=== PATIENT | female | born 1955 | race Caucasian/White ===

== ENCOUNTER → 2019-06-28 06:59 | Outpatient (CLI) | payer MEDICARE, OTHER, SELFPAY ==
[2019-06-28 07:41] LABS: Hematocrit 43.4 % (36-46); Hemoglobin 14.8 g/dL (12.0-16.0); Mean Corpuscular HGB Conc 34.1 % (30-36); Mean Corpuscular Hemoglobin 32.6 PG (26-34); Mean Corpuscular Volume 95.8 fL (80-100); Platelet Count 255 X10^3/uL (150-400); Red Blood Cell Count 4.53 X10^6/uL (4.0-5.2); Red Cell Distribution Width 13.1 % (11.6-14.8); White Blood Cell Count 5.3 X10^3/uL (4.5-11.0)
[2019-06-28 07:54] LABS: Alanine Aminotransferase 13 IU/L (<35); Albumin 4.1 g/dL (3.5-5.0); Albumin Globulin Ratio 1.4 (1.0-2.8); Alkaline Phosphatase 80 U/L (38-126); Aspartate Aminotransferase 19 IU/L (14-36); BUN Creatinine Ratio 18.6 (6-22); Blood Urea Nitrogen 13 mg/dL (7-17); Calcium 9.4 mg/dL (8.4-10.2); Carbon Dioxide 28 mmol/L (22-32); Chloride 103 mmol/L (98-107); Cholesterol 193 mg/dL (140-199); Estimated Glomerular Filt Rate > 60.0 mL/min (>60); Globulin 2.9 g/dL (1.7-4.1); Glucose 105 mg/dL (80-110); HDL Cholesterol 76 mg/dL (40-60); HEMOLYSIS < 15 (0-50); LDL Cholesterol Calculated 101 mg/dL (<100); Potassium 3.8 mmol/L (3.4-5.1); Sodium 138 mmol/L (137-145); Triglycerides 80 mg/dL (35-150)
[2019-06-28 08:19] LABS: Neutrophils Absolute Manual 3127 /uL (3000-5900); Total Cells Counted 100
[2019-06-28 08:22] LABS: Platelet Estimate Adequate on smear; RBC Morphology Normal Morphology
[2019-06-28 08:23] LABS: Thyroid Stimulating Hormone 1.61 uIU/mL (0.47-4.68)
[2019-06-28 08:56] LABS: Appearance Urine UA CLEAR; Bilirubin Urine UA NEGATIVE (NEGATIVE); Color Urine UA YELLOW; Glucose Urine UA NEGATIVE (Negative); Ketones Urine UA NEGATIVE (NEGATIVE); Leukocyte Esterase Urine UA 1+ (NEGATIVE); Nitrite Urine UA NEGATIVE (Negative); Occult Blood Urine UA NEGATIVE (Negative); Protein Urine UA NEGATIVE (Negative); Specific Gravity Urine UA 1.015 (1.000-1.035); Urobilinogen Urine UA 0.2 E.U./dL (0.2)
[2019-06-28 09:00] LABS: RBC Urine None Seen (0-5/HPF)
[2019-06-28 09:14] LABS: Bacteria Urine Occasional (0-1); Culture Indicated Urine Specimen Cultured; Squamous Epithelial Cell Urine 1-5 /HPF (0-5/HPF); WBC Urine 0-1/HPF (0-5/HPF)
== END ==
PROVIDERS: PCP Family Medicine; Visit Provider Family Medicine
DX: Z13.220 Encounter for screening for lipoid disorders (principal); Z13.29 Encounter for screening for other suspected endocrine disorder; Z51.81 Encounter for therapeutic drug level monitoring; J44.9 Chronic obstructive pulmonary disease, unspecified
CPT/HCPCS: 36415; 80053; 80061; 81003; 81015; 84443; 85025; 87086

== ENCOUNTER → 2019-07-23 09:49 | Outpatient (CLI) | payer MEDICARE, OTHER, SELFPAY ==
--- NOTE | 2019-07-23 09:51 | DI.MG.S_ITS ---
BILATERAL DIGITAL SCREENING MAMMOGRAM 3D/2D WITH CAD: 07/23/2019 CLINICAL: Routine screening. Comparison is made to exams dated: 12/17/2016 mammogram, 07/31/2010 mammogram, and 07/26/2005 mammogram - [facility]. The tissue of both breasts is heterogeneously dense. This may lower the sensitivity of mammography. Current study was also evaluated with a Computer Aided Detection (CAD) system. No significant masses, calcifications, or other findings are seen in either breast. There has been no significant interval change. IMPRESSION: NEGATIVE There is no mammographic evidence of malignancy. A 1 year screening mammogram is recommended. This exam was interpreted at Station ID: [id number]. NOTE: For mammograms, a report in lay terms will be sent to the patient. Approximately 15% of breast malignancies will not be visualized mammographically. In the management of a palpable breast mass, a negative mammogram must not discourage biopsy of a clinically suspicious lesion. Electronically Signed By: Murphy leal/smith:07/23/2019 12:45:38 letter sent: Normal Exam ACR BI-RADS Category 1: Negative [id number]
== END ==
PROVIDERS: PCP Family Medicine; Visit Provider Family Medicine
DX: Z12.31 Encounter for screening mammogram for malignant neoplasm of breast (principal)
CPT/HCPCS: 77063; 77067

== ENCOUNTER → 2020-01-07 15:40 | Outpatient (CLI) | payer MEDICARE, OTHER, SELFPAY ==
--- NOTE | 2020-01-07 15:46 | DI.RAD.S_ITS ---
PROCEDURE: XR THORACIC SPINE 3V INDICATIONS: RULE OUT COMP FX TECHNIQUE: 3 views of the thoracic spine were acquired. COMPARISON: None. FINDINGS: Bones: No dislocations. No suspicious bony lesions. 12 there is a vertebral plana compression fracture T7, chronicity uncertain. Elsewhere no fracture is found and there is only mild degenerative disc disease along the thoracic spine. pairs of ribs are noted, and appear intact where visualized. Soft tissues: No paravertebral stripe thickening. IMPRESSION: T7 vertebral plana compression fracture, with 64% height reduction when compared to the normal level immediately above. Dictated by: Kiel Cummings M.D. on 01/07/2020 at 16:28 Approved by: Kiel Cummings M.D. on 01/07/2020 at 16:30
== END ==
PROVIDERS: PCP Family Medicine; Referring Provider Chiropractor; Visit Provider Chiropractor
DX: M48.54XA Collapsed vertebra, not elsewhere classified, thoracic region, initial encounter for fracture (principal); M47.814 Spondylosis without myelopathy or radiculopathy, thoracic region
CPT/HCPCS: 72072

== ENCOUNTER → 2020-01-12 14:35 | Outpatient (CLI) | payer MEDICARE, OTHER, SELFPAY ==
[2020-01-12 15:53] LABS: Add Manual Diff / Slide Review NO; Basophils Absolute Auto 100 /uL (0-100); Basophils Percent Auto 0.6 % (0-2); Eosinophils Absolute Auto 300 /uL (0-450); Eosinophils Percent Auto 3.4 % (2-4); Hematocrit 41.5 % (36-46); Hemoglobin 14.4 g/dL (12.0-16.0); Lymphocytes Absolute Auto 2200 /uL (1100-4500); Lymphocytes Percent Auto 23.2 % (25-40); Mean Corpuscular HGB Conc 34.6 % (30-36); Mean Corpuscular Hemoglobin 33.2 PG (26-34); Mean Corpuscular Volume 95.8 fL (80-100); Monocytes Absolute Auto 700 /uL (0-900); Monocytes Percent Auto 7.5 % (3-14); Neutrophils Absolute Auto 6300 /uL (1500-7000); Neutrophils Percent Auto 65.3 % (50-75); Platelet Count 301 X10^3/uL (150-400); Red Blood Cell Count 4.33 X10^6/uL (4.0-5.2); White Blood Cell Count 9.7 X10^3/uL (4.5-11.0)
== END ==
PROVIDERS: PCP Family Medicine; Referring Provider Orthopaedic Surgery; Visit Provider Orthopaedic Surgery
DX: Z01.812 Encounter for preprocedural laboratory examination (principal)
CPT/HCPCS: 36415; 85025

== ENCOUNTER → 2020-01-15 14:18 | Outpatient (CLI) | payer MEDICARE, OTHER, SELFPAY ==
[2020-01-16 08:23] LABS: COVID19 Sendout Not Detected (Not Detect)
== END ==
PROVIDERS: PCP Family Medicine; Visit Provider Physician Assistant
DX: Z01.818 Encounter for other preprocedural examination (principal)
CPT/HCPCS: 87635

== ENCOUNTER 2020-01-18 11:29 | Day surgery (SDC) | payer MEDICARE, OTHER, SELFPAY ==
--- NOTE | 2020-01-14 14:26 | SUR.PREOP ---
per pt covid testing schd for Sat 01/17 @1445 with Resp clinic
--- NOTE | 2020-01-18 | PATH_ITS ---
[facility] Accession Number: [id number] . 01 Material submitted: . bone - T7 BONE . 01 Diagnosis: Bone, T7, Biopsy: Fragments of trabecular bone/marrow with focal osteonecrosis and extensive marrow necrosis. Negative for metastatic carcinoma or viable malignancy. V 01/20/2020 1248 Local . 01 Comment: A broad spectrum cytokeratin SURYA *immunostain is performed, with the control stained appropriately. The SURYA is negative, strongly ruling against a metastatic carcinoma. . * This test was developed and its performance characteristics determined by [facility]. It has not been cleared or approved by the U.S. Food and Drug Administration. The FDA has determined that such clearance or approval is not necessary. This test is used for clinical purposes. It should not be regarded as investigational or for research. . 01 Electronically signed: . Dunia Carlos MD, Pathologist NPI- [id number] . 01 Gross description: . T7 BONE: Received in formalin is 1 bone fragment measuring 0.3 x 0.3 x 0.2 cm. Specimen is submitted in toto after decalcification in 1 cassette. /ABDULLAHI 01/18/2020 2233 Local . 01 Pathologist provided ICD-10: S22.060A . 01 CPT . 620818, [id number] Performed at: 01 [facility] [address] [address] [place] [address] [address], [place], [place] [id number] MD Ketan Bradshaw MD Phone: [phone]
--- NOTE | 2020-01-18 | DI.RAD.S_ITS ---
PROCEDURE: XR THORACIC SPINE 2V INDICATIONS: T7 KYPHOPLASTY TECHNIQUE: 4 views of the thoracic spine were acquired. COMPARISON: [facility], , XR THORACIC SPINE 3V, 01/07/2020, 15:39. FINDINGS: Spot fluoroscopic intraoperative images demonstrating T7 kyphoplasty Dictated by: Casa Curtis M.D. on 01/18/2020 at 16:51 Approved by: Casa Curtis M.D. on 01/18/2020 at 16:52
[2020-01-18 07:11] VITALS: BMI 23.8
[2020-01-18 11:58] VITALS: BP 137/100; PULSE 89; RESP 14; TEMP 36.9; O2SAT 98; BMI 22.3
[2020-01-18] MEDS: LACTATED RINGERS 1,000 ML 42 ML IV (12:18)
--- NOTE | 2020-01-18 13:06 | PM.PREOP ---
Pre-operative Note COVID-19 COVID-19 status: Negative Result date/Date tested (Pos, Neg/Pending): 01/15/20 Interval Note History & Physical reviewed/Exam performed by Physician: Yes Changes to H&P: No
[2020-01-18] MEDS: CEFAZOLIN 2 GM/100 ML FROZ.PIGGY IV (13:40)
--- NOTE | 2020-01-18 13:55 | SUR.OPER ---
Prone on padded OR bed, head in foam head support, gel chest rolls, gel pad under knees, pillow under lower legs, toes free of pressure, arms secured on padded arm boards at <90 degrees abduction. Safety belt at thigh.
[2020-01-18] MEDS: BUPIVACAINE 0.25% W/ EPI (PF) 10 ML VIAL 60 ML INJ (13:58)
[2020-01-18 14:10] VITALS: BP 109/81; PULSE 80; RESP 16; TEMP 36.4; O2SAT 94
--- NOTE | 2020-01-18 14:12 | PM.OP.1 ---
Operative Date/Time/Diagnoses Date of procedure: 01/18/20 Time of procedure: 14:12 Pre-op diagnosis: T7 compression fracture Osteoporosis age-related with pathologic fracture Back pain midline Post-op diagnosis: same Procedure & Clinicians Procedure: T7 kyphoplasty Same procedure as scheduled: Yes Indications: [age] year old female with intractable pain from an acute compression fracture. They had failed conservative management and requested operative intervention. Risks and benefits of surgery were discussed and appropriate consents were obtained. Surgeon: Virgilio Casas Click Yes if Unassisted: Yes Anesthesia Type: General Operative Notes Findings: None Closure Type: primary Specimen(s): other (T7 vertebral biopsy) Estimated Blood Loss (mL): 1 Procedure in detail: The patient was brought to the operating room and intubated on the table. They were then rolled over to the well-padded prone position. Time-out was performed. We confirmed positioning with two fluoroscopy views. The back was prepped and draped in the standard sterile fashion. Preoperative antibiotics were given. Using fluoroscopic guidance, the planned incision site was infiltrated with Marcaine with epinephrine and injected down to the entry site of the left pedicle of T7. A small stab incision was made and we advanced a Jamshiedi needle down the left pedicle into the completely collapsed vertebral body. A bone biopsy was harvested from this and sent to pathology. We then passed the DFine osteotome and opened it up to create a void inside the vertebral body. We then began injecting the cement. This was done with frequent fluoroscopy imaging. There was minimal lateral extravasation. Once we had good fill of the T7 vertebral body the injection was stopped and the trocars were removed. Final x-rays were taken. The wound was cleaned. Steri-Strips and sterile dressing were placed. Patient was rolled over, extubated, and brought to recovery without complications. Complications: none Post-operative Condition: stable Disposition: PACU Plan for aftercare: Outpatient. Activity as tolerated.
[2020-01-18 14:15] VITALS: BP 120/80; PULSE 70; RESP 14; O2SAT 99
[2020-01-18 14:20] VITALS: BP 129/81; PULSE 90; RESP 14; O2SAT 98
[2020-01-18 14:30] VITALS: BP 125/92; PULSE 79; RESP 15; O2SAT 95
[2020-01-18] MEDS: OXYCODONE/ACETAMINOPHEN 5/325 TABLET 1 TAB PO (14:45)
[2020-01-18 14:55] VITALS: BP 172/82; PULSE 69; RESP 14; TEMP 37.5; O2SAT 97
--- NOTE | 2020-01-18 15:22 | SUR.PHASEII ---
1507 Multiple attempts to obtain BP, difficulty with automatic machines. Tolerating PO intake well. Ambulated to the bathroom, stable on feet. No questions/concerns. Stable.
== END 2020-01-18 15:07 | disposition home or self-care (01) ==
PROVIDERS: PCP Family Medicine; Referring Provider Orthopaedic Surgery; Visit Provider Orthopaedic Surgery
PROC: (CPT 22513; principal; 2020-01-18 14:15)
DX: M80.08XA Age-related osteoporosis with current pathological fracture, vertebra(e), initial encounter for fracture (principal); S22.060A Wedge compression fracture of T7-T8 vertebra, initial encounter for closed fracture; M54.6 Pain in thoracic spine; F17.210 Nicotine dependence, cigarettes, uncomplicated; J44.9 Chronic obstructive pulmonary disease, unspecified
CPT/HCPCS: 22513; 72070; 76000; C1776; J0690; J2250; J2704; J3010

== ENCOUNTER → 2020-02-12 13:59 | Outpatient (CLI) | payer MEDICARE, OTHER, SELFPAY ==
[2020-02-13 01:03] LABS: COVID19 Sendout Not Detected (Not Detect)
== END ==
PROVIDERS: PCP Family Medicine; Visit Provider Physician Assistant
DX: Z01.812 Encounter for preprocedural laboratory examination (principal)
CPT/HCPCS: 87635

== ENCOUNTER 2020-02-15 13:12 | Day surgery (SDC) | payer MEDICARE, OTHER, SELFPAY ==
[2020-02-11 08:37] VITALS: BMI 23.8
[2020-02-15] VITALS (8 sets, daily range): BP systolic 128–171; BP diastolic 86–100; PULSE 72–89; RESP 12–25; TEMP 36.8–37.3; O2SAT 92–97; BMI 23.8
--- NOTE | 2020-02-15 | PATH_ITS ---
[facility] Accession Number: [id number] . 01 Material submitted: . vertebral column - VERTEBRA T8 BIOPSY . 01 Clinical history: . THORACIC KYPHOPLASTY . 02 Diagnosis: Vertebra T8, Biopsy: Small fragment of trabecular bone and inflamed tissue with features of repair. Small focus of hematopoietic tissue with crush artifact. Active inflammation/acute osteomyelitis is present. Marked increase in eosinophils is present. Negative for epithelial neoplasm by immunohistochemistry studies. MRV 02/18/2020 1430 Local . 02 Electronically signed: . Lorraine Payan MD, Pathologist NPI- [id number] . 01 Gross description: . VERTEBRA T8 BIOPSY: Received in formalin is 1 fragment(s) of vera, hard bone measuring 0.3 x 0.2 x 0.2 cm submitted entirely in 1 cassette(s) /QBJ 02/16/2020 0415 Local . 02 Microscopic: . An immunostain for SURYA is performed. The control stain showed appropriate reactivity. . RESULTS: SURYA: Negative. . These findings mitigate against the presence of an epithelial neoplasm. . * This test was developed and its performance characteristics determined by [facility]. It has not been cleared or approved by the U.S. Food and Drug Administration. The FDA has determined that such clearance or approval is not necessary. This test is used for clinical purposes. It should not be regarded as investigational or for research. . 02 Pathologist provided ICD-10: S22.060A, M80.00XD, M54.6 . 02 CPT . 815870, [id number] Performed at: 01 [facility] [address] [place] [address] [address], [place], [place] [id number] MD Ketan Bradshaw MD Phone: [phone] Performed at: 02 [facility] [address] [place] [id number] MD Alissa Miguel MD Phone: [phone]
--- NOTE | 2020-02-15 | DI.RAD.S_ITS ---
PROCEDURE: XR LUMBAR SPINE 2-3V INDICATIONS: T8 KYPHOPLASTY TECHNIQUE: 2 views of the lumbar spine were acquired. COMPARISON: [facility], CR, XR THORACIC SPINE 3V, 01/07/2020, 15:39. [facility] [place], CR, XR THORACIC SPINE 2 VIEWS, 02/09/2020, 11:12. FINDINGS: 2 spot fluoroscopic interpreted views demonstrating T8 kyphoplasty. Dictated by: Casa Curtis M.D. on 02/15/2020 at 17:11 Approved by: Casa Curtis M.D. on 02/15/2020 at 17:13
[2020-02-15] MEDS: LACTATED RINGERS 1,000 ML 42 ML IV (14:51)
--- NOTE | 2020-02-15 14:58 | PM.PREOP ---
Pre-operative Note COVID-19 COVID-19 status: Negative Result date/Date tested (Pos, Neg/Pending): 02/12/20 Interval Note History & Physical reviewed/Exam performed by Physician: Yes Changes to H&P: No
[2020-02-15] MEDS: ALBUTEROL 2.5 MG/3 ML NEB (ADULT) INH (15:20)
--- NOTE | 2020-02-15 16:00 | SUR.OPER ---
Prone on flat spine table bed, head in foam head support, gel chest rolls, gel pad under knees, pillow under lower legs, toes free of pressure, arms secured on padded arm boards at <90 degrees abduction. Safety belt at thigh.
[2020-02-15] MEDS: BUPIVACAINE 0.25% W/ EPI 30 ML VIAL INJ (16:06)
[2020-02-15] MEDS: CEFAZOLIN 1 GM VIAL IV (16:07)
--- NOTE | 2020-02-15 16:10 | PM.OP.1 ---
Operative Date/Time/Diagnoses Date of procedure: 02/15/20 Time of procedure: 16:10 Pre-op diagnosis: T8 compression fracture Osteoporosis with current pathologic fracture Back pain Post-op diagnosis: same Procedure & Clinicians Procedure: T8 kyphoplasty Same procedure as scheduled: Yes Indications: [age] year old female with intractable pain from an acute T8 compression fracture. They had failed conservative management and requested operative intervention. Risks and benefits of surgery were discussed and appropriate consents were obtained. Surgeon: Virgilio Casas Click Yes if Unassisted: Yes Anesthesia Type: General Operative Notes Findings: None Closure Type: primary Specimen(s): other (T8 vertebral biopsy) Estimated Blood Loss (mL): 1 Procedure in detail: The patient was brought to the operating room and intubated on the table. They were then rolled over to the well-padded prone position. Time-out was performed. We confirmed positioning with two fluoroscopy views. The back was prepped and draped in the standard sterile fashion. Preoperative antibiotics were given. Using fluoroscopic guidance, the planned incision site was infiltrated with Marcaine with epinephrine and injected down to the entry site of the left pedicle of T8. A small stab incision was made and we advanced a Jamshiedi needle down the left pedicle into the vertebral body. A bone biopsy was harvested from this and sent to pathology. We then passed the DFine osteotome and opened it up to create a void inside the vertebral body. We then began injecting the cement. This was done with frequent fluoroscopy imaging. There was no extravasation. Once we had good fill of the T8 vertebral body the injection was stopped and the trocars were removed. Final x-rays were taken. The wound was cleaned. Steri-Strips and sterile dressing were placed. Patient was rolled over, extubated, and brought to recovery without complications. Complications: none Post-operative Condition: stable Disposition: same day surgery Plan for aftercare: Outpatient. Activity as tolerated
[2020-02-15] MEDS: fentaNYL 100 MCG/2 ML INJ IV (16:31)
--- NOTE | 2020-02-15 16:51 | SUR.PHASEI ---
transferred care to BLANCHE Harper. Pt in stable condition
--- NOTE | 2020-02-15 17:18 | SUR.PHASEII ---
Pt received from BLANCHE Herrera in stable condition both stating pt ready to go. All Dc instructions given to pt and she verbalizes understanding along with prescription. Pt up and ambulating well, pain tolerable at 3, getting dressed now at 1700.
== END 2020-02-15 17:15 | disposition home or self-care (01) ==
PROVIDERS: PCP Family Medicine; Referring Provider Orthopaedic Surgery; Visit Provider Orthopaedic Surgery
PROC: (CPT 22513; principal; 2020-02-15 14:45)
DX: M80.08XA Age-related osteoporosis with current pathological fracture, vertebra(e), initial encounter for fracture (principal); S22.060A Wedge compression fracture of T7-T8 vertebra, initial encounter for closed fracture; M54.9 Dorsalgia, unspecified; J44.9 Chronic obstructive pulmonary disease, unspecified; F41.9 Anxiety disorder, unspecified
CPT/HCPCS: 22513; 72100; 76000; C1776; J0690; J3010; J7613

== ENCOUNTER → 2020-03-09 14:49 | Outpatient (CLI) | payer MEDICARE, OTHER, SELFPAY | PROVIDERS: PCP Family Medicine; Referring Provider Family Medicine; Visit Provider Family Medicine | DX: M80.88XA Other osteoporosis with current pathological fracture, vertebra(e), initial encounter for fracture (principal); R53.83 Other fatigue; J44.9 Chronic obstructive pulmonary disease, unspecified; Z82.62 Family history of osteoporosis; Z78.0 Asymptomatic menopausal state; Z13.29 Encounter for screening for other suspected endocrine disorder; Z87.891 Personal history of nicotine dependence | CPT/HCPCS: 77080 ==

== ENCOUNTER → 2020-04-25 14:17 | Outpatient (CLI) | payer MEDICARE, OTHER, SELFPAY ==
[2020-04-25 14:59] LABS: Blood Urea Nitrogen 13 mg/dL (7-17); Estimated Glomerular Filt Rate > 60.0 mL/min (>60)
[2020-04-25] MEDS: ZOLEDRONIC ACID 5 MG in SODIUM CHLORIDE 0.9% 100 ML 425 ML IV (15:14)
[2020-04-25 15:23] VITALS: BP 140/75; PULSE 88; RESP 16; TEMP 37.2
== END ==
PROVIDERS: PCP Family Medicine; Referring Provider Family Medicine; Visit Provider Family Medicine
DX: M81.0 Age-related osteoporosis without current pathological fracture (principal)
CPT/HCPCS: 36415; 82565; 84520; 96365; J3489

== ENCOUNTER → 2020-12-25 09:35 | Outpatient (CLI) | payer MEDICARE, OTHER, SELFPAY ==
[2020-12-25 11:31] LABS: COVID19 -Nasal RAPID Negative (Negative)
== END ==
PROVIDERS: PCP Family Medicine; Visit Provider Student in an Organized Health Care Education/Training Program
DX: Z01.812 Encounter for preprocedural laboratory examination (principal); Z20.822 Contact with and (suspected) exposure to COVID-19
CPT/HCPCS: 87635; C9803

== ENCOUNTER 2020-12-26 08:19 | Day surgery (SDC) | payer MEDICARE, OTHER, SELFPAY ==
[2020-12-26] MEDS: PROPARACAINE 0.5% OPHTH SOL 2 DROPS EYE-OP (09:05)
[2020-12-26] MEDS: CATARACT EYE COMPOUND (10 DROPS/SYRINGE) 3 DROPS EYE-OP (09:10)
[2020-12-26 09:13] VITALS: BP 125/84; PULSE 84; RESP 18; TEMP 36.7; O2SAT 98; BMI 19.8
--- NOTE | 2020-12-26 10:02 | PM.PREOP ---
Pre-operative Note Interval Note History & Physical reviewed/Exam performed by Physician: Yes Changes to H&P: No
--- NOTE | 2020-12-26 10:02 | PM.OP.1 ---
Operative Date/Time/Diagnoses Pre-op diagnosis: Nuclear cataract right eye Procedure & Clinicians Procedure: Cataract Surgery Same procedure as scheduled: Yes Surgeon: Florin Yang Anesthesia Type: MAC +/- and Sedation Operative Notes Procedure in detail: Patient brought to the operating suite. Tetracaine drops placed in the right eye. Patient was prepped and draped in sterile manner. Wire lid speculum was placed in the eye. Betadine drops were placed on the eye. This was irrigated. Lidocaine jelly was placed on the eye. A paracentesis port was created with a side-port blade. 0.1 mL 1% preservative free lidocaine was injected into the anterior chamber. The anterior chamber was deepened with viscoelastic. 2.6 mm keratome was used to create a temporal clear corneal incision. Cystotome and Utrata forceps were used to create continuous tear capsulorrhexis. Balanced salt solution was used to hydro dissect the nucleus. The phacoemulsification handpiece was inserted and the nucleus was removed using the stop and chop technique. The irrigation aspiration handpiece was inserted and the remaining cortex was removed. Anterior chamber was deepened with viscoelastic. An Rosenthal ZCB00 intraocular lens with a power of 19.5 was injected into the capsular bag. Irrigation aspiration handpiece was inserted and the remaining viscoelastic was removed. Incision was hydrated with balanced salt solution and found to be leak free with pressure with Weck-Angeline sponges. 0.1 mL Vigamox injected anterior chamber. 0.3 mL Kenalog 10 mg was injected subconjunctivally. Lid speculum was removed. The patient left the operating room in excellent condition. Complications: none Post-operative Condition: stable Disposition: same day surgery
[2020-12-26] MEDS: LIDOCAINE 2% (GLYDO) 6 ML GEL TOP (10:18)
[2020-12-26] MEDS: TRIAMCINOLONE 50 MG/5 ML VIAL INJ (10:19)
[2020-12-26] MEDS: MOXIFLOXACIN INJ 4 MG/0.8 ML VIAL 0.5 MG EYE-OP (10:19)
[2020-12-26] MEDS: PHENYLEPHRINE/LIDOCAINE VIAL (OR) 0.2 ML EYE-OP (10:19)
[2020-12-26] MEDS: BALANCED SALT IRRIG SOLN NO.2 500 ML, EPINEPHrine 1 MG IRR (10:19)
[2020-12-26] MEDS: TETRACAINE 0.5% OPHTH DROPS 4 ML 2 DROPS EYE-OP (10:20)
[2020-12-26] MEDS: CHONDROIDTIN/SOD HYALURONATE 1.05 ML SYRINGE INTRAOCULA (10:20)
[2020-12-26 10:45] VITALS: BP 125/80; PULSE 88; RESP 18; O2SAT 97
--- NOTE | 2020-12-26 10:50 | SUR.PHASEII ---
pt awaiting ride and drinking coffee. Denies any complaints. Have called ride 3 times and no answer.
== END 2020-12-26 11:04 | disposition home or self-care (01) ==
PROVIDERS: PCP Family Medicine; Referring Provider Ophthalmology; Visit Provider Ophthalmology
PROC: (CPT 66984; principal; 2020-12-26 10:15)
DX: H25.11 Age-related nuclear cataract, right eye (principal); I25.2 Old myocardial infarction
CPT/HCPCS: 66984; J0171; J2250; J3301

== ENCOUNTER → 2021-01-08 08:58 | Outpatient (CLI) | payer MEDICARE, OTHER, SELFPAY ==
[2021-01-08 11:40] LABS: COVID19 -Nasal RAPID Negative (Negative)
== END ==
PROVIDERS: PCP Family Medicine; Visit Provider Student in an Organized Health Care Education/Training Program
DX: Z01.812 Encounter for preprocedural laboratory examination (principal); Z20.822 Contact with and (suspected) exposure to COVID-19
CPT/HCPCS: 87635; C9803

== ENCOUNTER 2021-01-09 06:39 | Day surgery (SDC) | payer MEDICARE, OTHER, SELFPAY ==
[2021-01-09] MEDS: CATARACT EYE COMPOUND (10 DROPS/SYRINGE) 3 DROPS EYE-OP (07:11)
[2021-01-09] MEDS: PROPARACAINE 0.5% OPHTH SOL 2 DROPS EYE-OP (07:11)
[2021-01-09 07:16] VITALS: BP 132/85; PULSE 95; RESP 16; TEMP 36.9; O2SAT 94
--- NOTE | 2021-01-09 08:01 | P.OP_ITS ---
Operative Date/Time/Diagnoses Pre-op diagnosis: Nuclear Cataract Left eye Post-op diagnosis: same Procedure & Clinicians Same procedure as scheduled: Yes Surgeon: Florin Yang Anesthesia Type: MAC +/- and Sedation Operative Notes Procedure in detail: Patient brought to the operating suite. Tetracaine drops placed in the left eye. Patient was prepped and draped in sterile manner. Wire lid speculum was placed in the eye. Betadine drops were placed on the eye. This was irrigated. Lidocaine jelly was placed on the eye. A paracentesis port was created with a side-port blade. 0.1 mL 1% preservative free lidocaine was injected into the anterior chamber. The anterior chamber was deepened with viscoelastic. 2.6 mm keratome was used to create a temporal clear corneal incision. Cystotome and Utrata forceps were used to create continuous tear capsulorrhexis. Balanced salt solution was used to hydro dissect the nucleus. The phacoemulsification handpiece was inserted and the nucleus was removed using the stop and chop technique. The irrigation aspiration handpiece was inserted and the remaining cortex was removed. Anterior chamber was deepened with viscoe lastic. An Rosenthal DIB00 intraocular lens with a power of 19.5 was injected into the capsular bag. Irrigation aspiration handpiece was inserted and the remaining viscoelastic was removed. Incision was hydrated with balanced salt solution and found to be leak free with pressure with Weck-Angeline sponges. 0.1 mL Vigamox injected anterior chamber. 0.3 mL Kenalog 10 mg was injected subconjunctivally. Lid speculum was removed. The patient left the operating room in excellent condition. Complications: none Post-operative Condition: stable Disposition: same day surgery
--- NOTE | 2021-01-09 08:01 | PM.PREOP ---
Pre-operative Note Interval Note History & Physical reviewed/Exam performed by Physician: Yes Changes to H&P: No
[2021-01-09] MEDS: CHONDROIDTIN/SOD HYALURONATE 1.05 ML SYRINGE INTRAOCULA (08:16)
[2021-01-09] MEDS: MOXIFLOXACIN INJ 4 MG/0.8 ML VIAL 0.5 MG EYE-OP (08:16)
[2021-01-09] MEDS: LIDOCAINE 2% (GLYDO) 6 ML GEL TOP (08:16)
[2021-01-09] MEDS: TETRACAINE 0.5% OPHTH DROPS 4 ML 2 DROPS EYE-OP (08:17)
[2021-01-09] MEDS: PHENYLEPHRINE/LIDOCAINE VIAL (OR) 0.2 ML EYE-OP (08:17)
[2021-01-09] MEDS: TRIAMCINOLONE 50 MG/5 ML VIAL INJ (08:17)
[2021-01-09] MEDS: BALANCED SALT IRRIG SOLN NO.2 500 ML, EPINEPHrine 1 MG IRR (08:18)
[2021-01-09 08:47] VITALS: BP 112/83; PULSE 95; RESP 12; TEMP 36.6; O2SAT 97
[2021-01-09 09:05] VITALS: BP 118/89; PULSE 93; RESP 14; TEMP 36.3; O2SAT 95
== END 2021-01-09 09:27 | disposition home or self-care (01) ==
PROVIDERS: PCP Family Medicine; Referring Provider Ophthalmology; Visit Provider Ophthalmology
PROC: (CPT 66984; principal; 2021-01-09 08:15)
DX: H25.12 Age-related nuclear cataract, left eye (principal); J44.9 Chronic obstructive pulmonary disease, unspecified
CPT/HCPCS: 66984; J0171; J2250; J3301

== ENCOUNTER → 2023-01-28 10:39 | Outpatient (CLI) | payer MEDICARE, SELFPAY ==
--- NOTE | 2023-01-28 10:47 | DI.CT.S_ITS ---
PROCEDURE: CT CHEST WO CON INDICATIONS: Personal history of nicotine dependence TECHNIQUE: Noncontrast 5 mm thick sections acquired from the pulmonary apices to the posterior costophrenic angles. 1 mm lung window, 5 mm thick coronal and sagittal and 7 mm axial MIP reformats were then acquired. For radiation dose reduction, the following was used: automated exposure control, adjustment of mA and/or kV according to patient size. COMPARISON: [facility], CT, CT LOW DOSE LUNG CA SCREENING, 02/26/2019, 12:45. FINDINGS: Image quality: Excellent. Lungs and pleura: No acute air space opacities. Redemonstration of severe upper lobe predominant pulmonary emphysematous changes and left greater than right apical bulla. No pneumothorax. No pleural effusion. Stable scarring of the posterior bilateral lung apices. No evidence for fibrosis/honeycombing. Mild subpleural reticular opacities of the bilateral lung bases. There is new scarring involving the confluence of the superior aspect of the left lower lobe (image 192/series 3.). No definite nodule identified in this region. No pleural effusions or pneumothorax. Central and peripheral airways are patent and normal in caliber. Mediastinum: Heart size is normal. Atherosclerosis. No pericardial effusion. No mediastinal adenopathy by size criteria. Thoracic aorta and central pulmonary arteries are normal in size. Esophagus is normal in caliber. No hiatal hernia. Bones and chest wall: No suspicious bony lesions. Age-indeterminate, mildly displaced posterolateral fracture of the left 4th rib (image 18/series 2). No acute vertebral body compression fractures. Interval anterior compression fractures of the T7 and T8 vertebral bodies status post vertebroplasty. No axillary or supraclavicular adenopathy by size criteria. Thyroid gland is unremarkable. Abdomen: Visualized upper abdominal solid organs and bowel loops appear unremarkable in the absence of contrast. Multiple scattered calcifications in the pancreas likely sequela of chronic pancreatitis. IMPRESSION: 1. Redemonstration of severe upper lobe predominant pulmonary emphysema with slightly increased prominence of subpleural reticular opacities of the bilateral lower lobes. New scarring at the confluence of proximal segmental airways of the superior aspect of the left lower lobe. No definite nodule or mass. Attention will be made on subsequent imaging. 2. Atherosclerosis. 3. Scattered, punctate calcifications of the pancreas likely sequela of chronic pancreatitis. 4. Age-indeterminate, mildly displaced fracture involving the posterolateral left 4th rib. 5. Chronic appearing anterior compression fractures of the T7 and T8 vertebral bodies status post vertebroplasty. Dictated by: Murphy Ross M.D. on 01/28/2023 at 14:31 Approved by: Murphy Ross M.D. on 01/28/2023 at 15:06
== END ==
PROVIDERS: PCP Family Medicine; Referring Provider Internal Medicine Critical Care Medicine; Visit Provider Internal Medicine Critical Care Medicine
DX: J43.9 Emphysema, unspecified (principal); K86.89 Other specified diseases of pancreas; I25.10 Atherosclerotic heart disease of native coronary artery without angina pectoris; S22.32XA Fracture of one rib, left side, initial encounter for closed fracture; M48.54XS Collapsed vertebra, not elsewhere classified, thoracic region, sequela of fracture; Z87.891 Personal history of nicotine dependence
CPT/HCPCS: 71250

== ENCOUNTER → 2024-08-26 09:04 | Outpatient (CLI) | payer MEDICARE, SELFPAY ==
--- NOTE | 2024-08-26 09:06 | DI.CT.S_ITS ---
PROCEDURE: CT LUNG LOW DOSE SCREENING INDICATIONS: LDCT prior smoker TECHNIQUE: Noncontrast 2.0-2.5 mm thick sections acquired from the pulmonary apices to the posterior costophrenic angles. 7 mm thick axial MIP, and 5 mm coronal and sagittal reformats were then acquired. For radiation dose reduction, the following was used: automated exposure control, adjustment of mA and/or kV according to patient size. COMPARISON: CT, CT LOW DOSE LUNG CA SCREENING, 02/26/2019, 12:45. [facility], CT, CT CHEST WO CON, 01/28/2023, 10:46. FINDINGS: Image quality: Diagnostic. Lower Neck: No enlarged lymph nodes. Thyroid: Not well seen. Axillae: No enlarged lymph nodes. Chest Wall: Unremarkable. Bones: Unremarkable. Lungs and Pleura: No pneumothorax or pleural effusions. Severe pulmonary hyperexpansion and COPD, comprised of both severe centrilobular and moderately severe upper lobe predominant bullous emphysema. Bilateral apical lung scarring and a small degree of pleural scarring is stable over time. Heart: Heart size is normal. No pericardial effusion. Thoracic Vessels: The aorta and pulmonary arteries demonstrate normal size. Mediastinum and Valery: No enlarged lymph nodes. Esophagus: No wall thickening. No hiatal hernia. Upper Abdomen: Visualized upper abdomen solid organs and bowel loops appear normal. IMPRESSION: No suspicious pulmonary nodules. Stable apical lung scarring and adjacent pleural scarring. Very severe emphysematous change. LUNG-RADS 1; continued annual screening, if eligible. Clinically Significant Non-pulmonary Findings: Very severe centrilobular and bullous emphysema. Dictated by: Kiel Cummings M.D. on 08/26/2024 at 14:23 Approved by: Kiel Cummings M.D. on 08/26/2024 at 14:26
== END ==
PROVIDERS: PCP Family Medicine; Referring Provider Internal Medicine; Visit Provider Internal Medicine
DX: F17.211 Nicotine dependence, cigarettes, in remission (principal); Z12.2 Encounter for screening for malignant neoplasm of respiratory organs; J43.2 Centrilobular emphysema
CPT/HCPCS: 71271